=== PATIENT | female | born 1960 | race Caucasian/White ===

== ENCOUNTER 2019-04-19 12:39 | Emergency (ER) | payer BC ==
[2019-04-19 12:57] VITALS: BP 144/84
--- NOTE | 2019-04-19 14:21 | UC ---
Minor Trauma HPI - HPI Summary HPI Summary: 58 yo female stepped in a pot hole last PM twisted left ankle and fell on left side left lat chest pain was not too bad last PM today went to pain clinic for steroid injection laid on xr table and felt a pop now with increased pain no sob - History of Current Complaint Chief Complaint: UCTrauma Stated Complaint: RIB PAIN Time Seen by Provider: 04/19/19 14:18 Hx Obtained From: Patient Onset/Duration: Sudden Onset Onset Of Pain: Immediate Severity Initially: Moderate Pain Intensity: 5 Pain Scale Used: 0-10 Numeric Mechanism Of Injury: Fall From A Standing Position Aggravating Factor(s): Deep Breaths, Movement Alleviating Factor(s): OTC Meds, Rest - Risk Factors Penetrating Injury Risk Factors: Negative - Allergies/Home Medications Allergies/Adverse Reactions: Allergies Allergy/AdvReac Type Severity Reaction Status Date / Time meloxicam [From Mobic] Allergy Itching Verified 04/19/19 12:56 Penicillins Allergy Rash Verified 04/19/19 12:56 rofecoxib [From Vioxx] Allergy Unknown Verified 04/19/19 12:56 Reaction Details codeine AdvReac GI Upset Verified 04/19/19 12:56 homatropine AdvReac GI Upset Verified 04/19/19 12:56 [From Hycodan (with homatropin)] hydrocodone AdvReac GI Upset Verified 04/19/19 12:56 [From Hycodan (with homatropin)] Home Medications: Home Medications Docusate CAP* [Colace Cap*] 100 mg PO .EVERYOTHERDAY 04/19/19 [History Confirmed 04/19/19] PMH/Surg Hx/FS Hx/Imm Hx Previously Healthy: Yes - Surgical History Surgical History: Yes Surgery Procedure, Year, and Place: 1980 open ghada and appy. 1982 tubal ligation. 2009 gastric bypass. 2013 bilateral oopherectomy. Left wrist tendon surgery. tonsills - Social History Alcohol Use: Rare Substance Use Type: None Smoking Status (MU): Former Smoker Type: Cigarettes Review of Systems All Other Systems Reviewed And Are Negative: Yes Constitutional: Positive: Negative Skin: Positive: Negative Eyes: Positive: Negative ENT: Positive: Negative Respiratory: Positive: Negative Cardiovascular: Positive: Chest Pain Gastrointestinal: Positive: Negative Genitourinary: Positive: Negative Motor: Positive: Negative Neurovascular: Positive: Negative Musculoskeletal: Positive: Negative Neurological: Positive: Negative Psychological: Positive: Negative Physical Exam Triage Information Reviewed: Yes Appearance: Well-Appearing, No Pain Distress, Well-Nourished Vital Signs: Initial Vital Signs Temp 97.8 F 04/19/19 12:51 Pulse 62 04/19/19 12:51 Resp 16 04/19/19 12:51 BP 144/84 04/19/19 12:51 Pulse Ox 99 04/19/19 12:51 Vital Signs Reviewed: Yes Eyes: Positive: Conjunctiva Clear ENT: Negative: Nasal congestion, Nasal drainage, Muffled voice, Hoarse voice Neck: Positive: Supple, Nontender Respiratory: Positive: Lungs clear, Normal breath sounds, No respiratory distress, No accessory muscle use. Negative: Chest non-tender Cardiovascular: Positive: RRR, No Murmur Musculoskeletal: Positive: ROM Intact, No Edema Neurological: Positive: Alert Psychological Exam: Normal Skin Exam: Normal Images Front/Back of Body, Lg ([place]): 1 - tender 2 - tender 3 - abrasion 4 - tender Minor Trauma Course/Dx - Differential Dx/Diagnosis Provider Diagnosis: Contusion of rib on left side, Sprain of left shoulder Discharge - Sign-Out/Discharge Documenting (check all that apply): Patient Departure All imaging exams completed and their final reports reviewed: Yes - Discharge Plan Condition: Stable Disposition: HOME Prescriptions: Cyclobenzaprine TAB* [Flexeril TAB*] 10 mg PO TID PRN #21 tab PRN Reason: Spasms Patient Education Materials: Contusion in Adults (ED) Forms: *Work Release Referrals: Mindi Lopez MD [Primary Care Provider] - 5 Days Additional Instructions: ibuprofen rest ice - Billing Disposition and Condition Condition: STABLE Disposition: Home
== END 2019-04-19 14:26 | disposition home or self-care (01) ==
LOC: UCEAST 12:39
DX: S20.211A Contusion of right front wall of thorax, initial encounter (principal); S43.402A Unspecified sprain of left shoulder joint, initial encounter; W17.2XXA Fall into hole, initial encounter; Y92.9 Unspecified place or not applicable; Z87.891 Personal history of nicotine dependence
CPT/HCPCS: 99212; G0463

== ENCOUNTER 2023-10-05 11:39 | Observation (INO) ==
[2023-10-05] MEDS ORDERED: Ondansetron 4 mg VIAL 2 MG/ML 2 ml VIAL IV ONE ×2 (12:36→15:01)
[2023-10-05] MEDS ORDERED: Lactated Ringers 1000 ml BAG 1,000 ML IV ONE ×2 (12:36→15:18)
[2023-10-05 13:03] LABS: ABS Lymphocytes 1.1 10^3/uL (1.0-4.8); ABS Neutrophils 14.4 10^3/uL (1.5-7.6); ABS Nucleated RBC 0.05 10^3/ul; Eosinophil % 0.1 %; Hematocrit 49.3 % (35-45); Hemoglobin 16.5 g/dL (11.5-14.3); Lymphocyte % 6.8 %; Mean Corpuscular Hemoglobin 30.8 pg (27-33); Mean Corpuscular Hgb Conc 33.5 g/dL (31-36); Mean Corpuscular Volume 91.8 fL (80-97); Mean Platelet Volume 7.7 fL (7.5-11.2); Nucleated Red Blood Cells % 0.3 %/100WBC (0.0-0.8); Platelet Count 345 10^3/uL (150-450); Red Blood Count 5.37 10^6/uL (3.63-4.92); Red Cell Distribution Width 13.7 % (12-17); White Blood Count 16.6 10^3/uL (3.8-11.8)
[2023-10-05 13:11] LABS: Activated Partial Thrombo Time 29.4 seconds (26.0-38.0); INR 0.98 (0.83-1.13)
[2023-10-05 13:22] LABS: Albumin/Globulin Ratio 1.5 (1-3); C Reactive Protein 5.32 mg/L (<8.01); Calcium 9.8 mg/dL (8.6-10.3); Creatinine, Serum 0.83 mg/dL (0.51-0.95); Globulin 3.4 g/dL (2-4); Potassium 4.9 mmol/L (3.5-5.0); Total Bilirubin 0.5 mg/dL (0.2-1.0); Total Protein 8.4 g/dL (6.4-8.9); eGFR CKD-EPI 78.7 (>60)
[2023-10-05] MEDS ORDERED: Iohexol 350 (CONTRAST) 500 ML MDV IV ONE (13:24)
[2023-10-05] MEDS ORDERED: HYDROmorphone 1 MG/1 ML SYRINGE IV SLOW PU ONE (14:44)
[2023-10-05] MEDS ORDERED: Ondansetron 4 mg VIAL 2 MG/ML 2 ml VIAL IV PRN (15:18)
[2023-10-05] MEDS ORDERED: Acetaminophen IV 1 GM/100ML 1,000 MG/100 ML BAG IV PRN (15:22)
[2023-10-05] MEDS ORDERED: HYDROmorphone 0.5 MG/0.5 ML SYRINGE IV SLOW PU PRN (15:25)
[2023-10-05 15:45] LABS: Urine Appearance Clear; Urine Bilirubin Negative (Negative); Urine Blood Negative (Negative); Urine Color Yellow; Urine Glucose Negative (Negative); Urine Ketones Negative (Negative); Urine Nitrite Negative (Negative); Urine Protein Negative (Negative); Urine Urobilinogen Negative (Negative)
[2023-10-05 15:56] LABS: Urine Bacteria Absent (Absent); Urine Red Blood Cell Trace(0-2/hpf) (Absent); Urine Squamous Epithelial Cell Present (Absent); Urine White Blood Cell Trace(0-5/hpf) (Absent)
[2023-10-05] MEDS: NS 0.9% 1000 ml BAG 1,000 ML IV SCH (17:04)
[2023-10-05] MEDS ORDERED: Lorazepam PYXIS KEY PRN (18:22)
[2023-10-05 18:45] LABS: Urine Specific Gravity > 1.060 (1.002-1.030)
[2023-10-05] MEDS ORDERED: Phenytoin 100 mg ER CAP PO SCH (21:00)
[2023-10-05] MEDS ORDERED: PHENYTOIN IVPB SCH (21:00)
[2023-10-05] MEDS ORDERED: NS 0.9% IVPB SCH (21:00)
[2023-10-05] MEDS: LORazepam 2 mg VIAL 1 ml IV PUSH SCH (21:37)
[2023-10-06] MEDS: NS 0.9% 1000 ml BAG 1,000 ML IV SCH ×3 (01:11→22:19)
[2023-10-06] MEDS: Fosphenytoin 100 MG in NS 0.9% 50 ML IVPB SCH ×4 (03:20→21:45)
[2023-10-06 06:19] LABS: ABS Eosinophils 0.2 10^3/uL (0.0-0.5); ABS Lymphocytes 2.1 10^3/uL (1.0-4.8); ABS Monocytes 0.7 10^3/uL (0.0-0.9); ABS Neutrophils 4.2 10^3/uL (1.5-7.6); ABS Nucleated RBC 0.01 10^3/ul; Eosinophil % 2.6 %; Hematocrit 36.1 % (35-45); Hemoglobin 12.4 g/dL (11.5-14.3); Lymphocyte % 29.3 %; Mean Corpuscular Hemoglobin 31.8 pg (27-33); Mean Corpuscular Hgb Conc 34.3 g/dL (31-36); Mean Corpuscular Volume 92.7 fL (80-97); Mean Platelet Volume 8.2 fL (7.5-11.2); Nucleated Red Blood Cells % 0.1 %/100WBC (0.0-0.8); Platelet Count 236 10^3/uL (150-450); Red Cell Distribution Width 13.4 % (12-17); White Blood Count 7.2 10^3/uL (3.8-11.8)
[2023-10-06 06:37] LABS: Calcium 7.7 mg/dL (8.6-10.3); Creatinine, Serum 0.54 mg/dL (0.51-0.95); Potassium 4.2 mmol/L (3.5-5.0); eGFR CKD-EPI 102.7 (>60)
[2023-10-06] MEDS ORDERED: Acetaminophen IV 1 GM/100ML 1,000 MG/100 ML BAG IV PRN (08:00)
[2023-10-06] MEDS ORDERED: CMCS: LoraTADine 10 mg TAB (NF) PO PRN (15:09)
[2023-10-06] MEDS ORDERED: Fluticasone NASAL SPRAY 50MCG 16 gm SPRAY BTL BOTH NARES SCH (15:30)
[2023-10-06] MEDS: LORazepam 2 mg VIAL 1 ml IV PUSH SCH (21:38)
[2023-10-07] MEDS: Fosphenytoin 100 MG in NS 0.9% 50 ML IVPB SCH (03:05)
[2023-10-07 06:42] VITALS: BP 125/74
[2023-10-07] MEDS: NS 0.9% 1000 ml BAG 1,000 ML IV SCH (07:29)
== END 2023-10-07 09:55 | disposition home or self-care (01) ==
LOC: ED 11:39 → EDHOLD 11:39 → SSU 16:31
PROVIDERS: ADMIT Surgery; ATTEND Surgery